=== PATIENT | female | born 2000 | race American Indian/Alaskan Native ===

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

== ENCOUNTER 2018-02-18 08:49 | Emergency (ER) | payer BC, MEDICAID ==
[2018-02-18 09:14] VITALS: BP 116/73
[2018-02-18] MEDS ORDERED: NACL 0.9% 1000 ML 1,000 ML IV ONE (09:51)
[2018-02-18 10:08] LABS: Hematocrit 40.6 % (30.3-42.9); Hemoglobin 13.7 gm/dl (10.1-14.3); Mean Corpuscular HGB Conc 34 % (30-34); Mean Corpuscular Volume 92 fl (79-97); Red Blood Count 4.42 M/mm3 (3.65-5.03); Red Cell Distribution Width 13.4 % (13.2-15.2)
[2018-02-18 10:09] LABS: Basophils % (Auto) 0.5 % (0.0-1.8); Eosinophils % (Auto) 0.4 % (0.0-4.3); Lymphocytes # (Auto) 2.1 K/mm3 (1.2-5.4); Lymphocytes % (Auto) 27.5 % (13.4-35.0); Monocytes # (Auto) 0.6 K/mm3 (0.0-0.8); Monocytes % (Auto) 7.3 % (0.0-7.3); Platelet Count 279 K/mm3 (140-440)
[2018-02-18 10:27] LABS: BUN/Creatinine Ratio 10; Blood Urea Nitrogen 6 mg/dL (7-17); Calcium 9.4 mg/dL (8.4-10.2); Hemolysis Index 15
[2018-02-18 10:29] LABS: Bacteria,Urine 4+ /HPF (Negative); Bilirubin,Urine NEG (Negative); Blood,Urine NEG (Negative); Color,Urine Yellow (Yellow); Mucus,Urine FEW /HPF; Protein,Urine <15 mg/dL mg/dL (Negative); Urobilinogen,Urine < 2.0 mg/dL (<2.0)
[2018-02-18 10:30] LABS: HCG Qualitative,Urine Negative (Negative)
--- NOTE | 2018-02-18 10:44 | Emergency Department Report ---
ED Syncope HPI - General Chief Complaint: Dizziness Stated Complaint: DIZINESS Time Seen by Provider: 02/18/18 09:35 - History of Present Illness Initial Comments: 17-year-old female presents to the ED following a syncopal episode while on the elevator. She states as the elevator began to move she passed out. She states this has happened before in the past, her passing out while riding an elevator. Patient denies headache, chest pain, shortness of breath, fever, vomiting, diarrhea. Patient reports history of tachycardia for which she takes nadolol and is seen by a oral health therapist, Dr Ratliff. Timing/Prior Episodes: remote history Precipitating Factors: Positive: none Context: standing Loss of Consciousness: brief (seconds) Current Symptoms: back to normal - Related Data Allergies/Adverse Reactions: Allergies corn Allergy (Verified 02/05/18 11:51) Rash peanut Allergy (Verified 09/03/17 02:59) Swelling Penicillins Allergy (Verified 09/03/17 02:59) Swelling shellfish derived Allergy (Verified 02/05/18 11:54) Swelling soybean Allergy (Verified 02/05/18 11:51) Rash wheat Allergy (Verified 02/05/18 11:51) Rash seafood Allergy (Uncoded 09/03/17 02:59) Swelling Home Medications: Ambulatory Orders Albuterol Sulfate Nebu 1 neb IH Q4-6H PRN 05/16/14 Flexeril 5mg 5 mg PO Q8H PRN 05/16/14 Gabapentin 600 mg PO BID 05/16/14 Ibuprofen [Motrin 400 MG tab] 400 mg PO Q8H PRN #30 tablet 04/25/15 predniSONE [Deltasone] 50 mg PO QDAY #5 tab 06/03/16 ALPRAZolam [Xanax TAB] 0.5 mg PO BID PRN #10 tab 02/06/17 Mag Hydrox/Aluminum Hyd/Simeth [Maalox Advanced Suspension] 20 ml PO QID PRN #1 oral.susp 09/03/17 Propranolol HCl 20 mg PO BID #60 tablet 09/03/17 hydrOXYzine PAMOATE [Vistaril] 50 mg PO Q6HR PRN #30 capsule 09/03/17 Famotidine [Pepcid] 20 mg PO BID #60 tablet 09/18/17 Azithromycin [Zithromax Z-CHARLENE] 250 mg PO DAILY #6 tablet 01/01/18 Benzonatate [Tessalon Perle] 100 mg PO Q8H PRN #20 capsule 01/01/18 Prednisone [predniSONE 10 mg (6-Day Pack, 21 Tabs)] 10 mg PO .TAPER #1 tab.ds.pk 01/01/18 Azithromycin [Zithromax Z-CHARLENE] 250 mg PO DAILY #6 tablet 02/05/18 Fluticasone [Flonase] 1 spray NS QDAY #1 bottle 02/05/18 predniSONE [Deltasone] 20 mg PO QDAY #5 tab 02/05/18 traMADol [Ultram] 50 mg PO Q6HR PRN #10 tablet 02/05/18 Benzonatate [Tessalon Perle] 100 mg PO Q8H PRN #20 capsule 02/11/18 ProAir 2 puff IH Q4-6H PRN #1 02/11/18 ED Review of Systems ROS: Stated complaint: DIZINESS Other details as noted in HPI Comment: All other systems reviewed and negative Constitutional: denies: chills, fever Respiratory: denies: shortness of breath Cardiovascular: denies: chest pain Gastrointestinal: denies: abdominal pain, nausea, vomiting, diarrhea Neurological: other (denies dizziness). denies: headache, weakness, numbness, paresthesias ED Past Medical Hx - Past Medical History Previous Medical History?: Yes Hx Arthritis: Yes Hx Asthma: Yes Additional medical history: chronic pain,palpitations. SCIATICA. "SPOT ON BRAIN", ANXIETY - Surgical History Past Surgical History?: Yes Additional Surgical History: TONSILLECTOMY. TUBES IN EARS - Social History Smoking Status: Never Smoker Substance Use Type: Prescribed - Medications Home Medications: Home Medications Medication Instructions Recorded Confirmed Last Taken Type Albuterol Sulfate Nebu 1 neb IH Q4-6H PRN 05/16/14 06/03/16 05/13/14 08:00 History Flexeril 5mg 5 mg PO Q8H PRN 05/16/14 06/03/16 05/14/14 21:00 History Gabapentin 600 mg PO BID 05/16/14 06/03/16 05/15/14 08:00 History Ibuprofen [Motrin 400 MG tab] 400 mg PO Q8H PRN #30 tablet 04/25/15 06/03/16 Unknown Rx predniSONE [Deltasone] 50 mg PO QDAY #5 tab 06/03/16 Unknown Rx ALPRAZolam [Xanax TAB] 0.5 mg PO BID PRN #10 tab 02/06/17 Unknown Rx Mag Hydrox/Aluminum Hyd/Simeth 20 ml PO QID PRN #1 oral.susp 09/03/17 Unknown Rx [Maalox Advanced Suspension] Propranolol HCl 20 mg PO BID #60 tablet 09/03/17 Unknown Rx hydrOXYzine PAMOATE [Vistaril] 50 mg PO Q6HR PRN #30 capsule 09/03/17 Unknown Rx Famotidine [Pepcid] 20 mg PO BID #60 tablet 09/18/17 Unknown Rx Azithromycin [Zithromax Z-CHARLENE] 250 mg PO DAILY #6 tablet 01/01/18 Unknown Rx Benzonatate [Tessalon Perle] 100 mg PO Q8H PRN #20 capsule 01/01/18 Unknown Rx Prednisone [predniSONE 10 mg 10 mg PO .TAPER #1 tab.ds.pk 01/01/18 Unknown Rx (6-Day Pack, 21 Tabs)] Azithromycin [Zithromax Z-CHARLENE] 250 mg PO DAILY #6 tablet 02/05/18 Unknown Rx Fluticasone [Flonase] 1 spray NS QDAY #1 bottle 02/05/18 Unknown Rx predniSONE [Deltasone] 20 mg PO QDAY #5 tab 02/05/18 Unknown Rx traMADol [Ultram] 50 mg PO Q6HR PRN #10 tablet 02/05/18 Unknown Rx Benzonatate [Tessalon Perle] 100 mg PO Q8H PRN #20 capsule 02/11/18 Unknown Rx ProAir 2 puff IH Q4-6H PRN #1 02/11/18 Unknown Rx ED Physical Exam - General Limitations: No Limitations General appearance: alert, in no apparent distress - Head Head exam: Present: atraumatic, normocephalic - Eye Eye exam: Present: normal appearance, PERRL, EOMI - ENT ENT exam: Present: mucous membranes moist - Neck Neck exam: Present: normal inspection - Respiratory Respiratory exam: Present: normal lung sounds bilaterally. Absent: respiratory distress - Cardiovascular Cardiovascular Exam: Present: regular rate, normal rhythm - GI/Abdominal GI/Abdominal exam: Present: soft. Absent: distended, tenderness - Extremities Exam Extremities exam: Present: normal inspection - Neurological Exam Neurological exam: Present: alert, oriented X3, CN II-XII intact. Absent: motor sensory deficit - Psychiatric Psychiatric exam: Present: normal affect, normal mood - Skin Skin exam: Present: warm, dry, intact, normal color ED Course Vital Signs 02/18/18 09:09 Temperature 98.4 F Pulse Rate 81 Respiratory 18 Rate Blood Pressure 116/73 O2 Sat by Pulse 100 Oximetry ED Medical Decision Making - Lab Data Result diagrams: 02/18/18 10:00 02/18/18 09:57 - EKG Data -: EKG Interpreted by Co EKG shows normal: sinus rhythm, axis, intervals, QRS complexes, ST-T waves Rate: normal - EKG Data Interpretation: no acute changes - Medical Decision Making 17-year-old female status post syncopal episode while elevated. She states this has happened before in the past and the elevated takeoff. Patient denies chest pain, shortness of breath, dizziness. Patient slightly orthostatic, so IV fluids given. EKG normal. Labs normal. Patient feeling much better at this time. Will discharge home. Advise follow-up with her oral health therapist. Return precautions given. - Differential Diagnosis vasovagal syncope, dehydration, arrythmia Critical care attestation.: If time is entered above; I have spent that time in minutes in the direct care of this critically ill patient, excluding procedure time. ED Disposition Clinical Impression: Syncope Disposition: DC-01 TO HOME OR SELFCARE Is pt being admited?: No Condition: Stable Instructions: Syncope (ED) Referrals: PRIMARY CARE, [Primary Care Provider] - 3-5 Days Time of Disposition: 11:57
== END 2018-02-18 12:08 | disposition home or self-care (01) ==
LOC: ED 08:49
DX: R55 Syncope and collapse (principal); M19.90 Unspecified osteoarthritis, unspecified site; J45.909 Unspecified asthma, uncomplicated
CPT/HCPCS: 36415; 80048; 81001; 81025; 85025; 93005; 93010; 96360; 99283; J7030

== ENCOUNTER 2019-04-02 17:48 | Emergency (ER) | payer BC, MEDICARE ==
[2019-04-02 19:32] VITALS: BP 121/79
--- NOTE | 2019-04-02 19:33 | Emergency Department Report ---
{null, Blank Doc - Documentation Documentation: 18-year-old female that presents with vaginal bleeding and pelvic cramping. U nsure if shes . This initial assessment/diagnostic orders/clinical plan/treatment(s) is/are subject to change based on patient's health status, clinical progression and re- assessment by fellow clinical providers in the ED. Further treatment and workup at subsequent clinical providers discretion. Patient/guardians urged not to elope from the ED as their condition may be serious if not clinically assessed and managed. Initial orders include: 1- Patient sent to [facility] for further evaluation and treatment 2- UA }
[2019-04-02 20:11] LABS: HCG Qualitative,Urine Negative (Negative)
[2019-04-02 20:12] LABS: Bacteria,Urine 1+ /HPF (Negative); Mucus,Urine FEW /HPF
[2019-04-02 20:15] LABS: RBC,Urine > 182.0 /HPF (0.0-6.0)
[2019-04-02 20:16] LABS: Bilirubin,Urine Negative (Negative); Blood,Urine Moderate (Negative); Color,Urine Straw (Yellow)
--- NOTE | 2019-04-02 22:36 | Emergency Department Report ---
{null, HPI - General Chief Complaint: Vaginal Bleeding Time Seen by Provider: 04/02/19 19:32 - HPI HPI: Room 39 The patient is a 18-year-old female presenting with a chief complaint of "possible miscarriage." The patient states her LMP was 03/11/2019. Patient states she had intercourse shortly afterwards and was concerned she was because she began developing nausea and vomiting in the mornings. Patient states this morning when she awakened she had back pain and lower abdominal cramping so she went to urinate and she noticed she passed a blood clot vaginally. The patient and family states the blood clot appeared to have "things" coming out of it that were attached to the patient which made him believe she was having a miscarriage. Patient currently denies vaginal bleeding ED Past Medical Hx - Past Medical History Previous Medical History?: Yes Hx Arthritis: Yes Hx Asthma: Yes Additional medical history: chronic pain,palpitations. SCIATICA. "SPOT ON BRAIN", ANXIETY - Surgical History Past Surgical History?: Yes Additional Surgical History: TONSILLECTOMY. TUBES IN EARS - Family History Family history: no significant - Social History Smoking Status: Never Smoker Substance Use Type: None - Medications Home Medications: Home Medications Medication Instructions Recorded Confirmed Last Taken Type Albuterol Sulfate Nebu 1 neb IH Q4-6H PRN 05/16/14 06/03/16 05/13/14 08:00 History Flexeril 5mg 5 mg PO Q8H PRN 05/16/14 06/03/16 05/14/14 21:00 History Gabapentin 600 mg PO BID 05/16/14 06/03/16 05/15/14 08:00 History Ibuprofen [Motrin 400 MG tab] 400 mg PO Q8H PRN #30 tablet 04/25/15 06/03/16 Unknown Rx predniSONE [Deltasone] 50 mg PO QDAY #5 tab 06/03/16 Unknown Rx ALPRAZolam [Xanax TAB] 0.5 mg PO BID PRN #10 tab 02/06/17 Unknown Rx Mag Hydrox/Aluminum Hyd/Simeth 20 ml PO QID PRN #1 oral.susp 09/03/17 Unknown Rx [Maalox Advanced Suspension] Propranolol HCl 20 mg PO BID #60 tablet 09/03/17 Unknown Rx hydrOXYzine PAMOATE [Vistaril] 50 mg PO Q6HR PRN #30 capsule 09/03/17 Unknown Rx Famotidine [Pepcid] 20 mg PO BID #60 tablet 09/18/17 Unknown Rx Azithromycin [Zithromax Z-CHARLENE] 250 mg PO DAILY #6 tablet 01/01/18 Unknown Rx Benzonatate [Tessalon Perle] 100 mg PO Q8H PRN #20 capsule 01/01/18 Unknown Rx Prednisone [predniSONE 10 mg 10 mg PO .TAPER #1 tab.ds.pk 01/01/18 Unknown Rx (6-Day Pack, 21 Tabs)] Azithromycin [Zithromax Z-CHARLENE] 250 mg PO DAILY #6 tablet 02/05/18 Unknown Rx Fluticasone [Flonase] 1 spray NS QDAY #1 bottle 02/05/18 Unknown Rx predniSONE [Deltasone] 20 mg PO QDAY #5 tab 02/05/18 Unknown Rx traMADoL [Ultram] 50 mg PO Q6HR PRN #10 tablet 02/05/18 Unknown Rx Benzonatate [Tessalon Perle] 100 mg PO Q8H PRN #20 capsule 02/11/18 Unknown Rx ProAir 2 puff IH Q4-6H PRN #1 02/11/18 Unknown Rx ED Review of Systems ROS: Stated complaint: POSS MISCARRIAGE Other details as noted in HPI Constitutional: no symptoms reported Eyes: denies: eye pain ENT: denies: throat pain Respiratory: no symptoms reported Cardiovascular: denies: chest pain Endocrine: no symptoms reported Gastrointestinal: abdominal pain Genitourinary: abnormal menses Musculoskeletal: denies: back pain Neurological: denies: headache Physical Exam - Physical Exam Vital Signs: Vital Signs 04/02/19 19:31 Temperature 98.0 F Pulse Rate 82 Respiratory 18 Rate Blood Pressure 121/79 O2 Sat by Pulse 100 Oximetry Physical Exam: GENERAL: The patient is well-developed well-nourished female lying on stretcher not appearing to be in acute distress. [] HEENT: Normocephalic. Atraumatic. Extraocular motions are intact. Patient has moist mucous membranes. NECK: Supple. Trachea midline CHEST/LUNGS: Clear to auscultation. There is no respiratory distress noted. HEART/CARDIOVASCULAR: Regular. There is no tachycardia. There is no gallop rub or murmur. ABDOMEN: Abdomen is soft, nontender. Patient has normal bowel sounds. There is no abdominal distention. SKIN: There is no rash. There is no edema. There is no diaphoresis. NEURO: The patient is awake, alert, and oriented. The patient is cooperative. The patient has normal speech MUSCULOSKELETAL: There is no evidence of acute injury. PELVIC: Patient requested female practitioner. Per EMERITA Lauren scant amount of blood in the vault. No tissue visualized. Nothing coming from the cervical os ED Course Vital Signs 04/02/19 19:31 Temperature 98.0 F Pulse Rate 82 Respiratory 18 Rate Blood Pressure 121/79 O2 Sat by Pulse 100 Oximetry ED Medical Decision Making - Differential Diagnosis Missed , metrorrhagia Critical care attestation.: If time is entered above; I have spent that time in minutes in the direct care of this critically ill patient, excluding procedure time. ED Disposition Clinical Impression: Metrorrhagia Disposition: DC-01 TO HOME OR SELFCARE Is pt being admited?: No Does the pt Need Aspirin: No Condition: Stable Additional Instructions: Return to the emergency department should you develop worsening symptoms, inability to tolerate food or liquids, high fever or any other concerns Referrals: ABIGAIL MILLER MD [Staff Physician] - 3-5 Days (Dr. Miller is a military communications specialist. Please follow-up with her for further evaluation) Time of Disposition: 00:13 }
== END 2019-04-03 00:20 | disposition home or self-care (01) ==
LOC: ED 17:48
DX: N92.1 Excessive and frequent menstruation with irregular cycle (principal); J45.909 Unspecified asthma, uncomplicated; M19.90 Unspecified osteoarthritis, unspecified site; Z98.890 Other specified postprocedural states; Z90.89 Acquired absence of other organs; Z88.0 Allergy status to penicillin; Z91.010 Allergy to peanuts; Z91.013 Allergy to seafood; Z91.018 Allergy to other foods; Z79.1 Long term (current) use of non-steroidal anti-inflammatories (NSAID); Z79.899 Other long term (current) drug therapy
CPT/HCPCS: 81001; 81025

== ENCOUNTER 2019-04-13 02:10 | Emergency (ER) | payer BC, MEDICARE ==
[2019-04-13 02:35] VITALS: BP 121/74
--- NOTE | 2019-04-13 02:52 | Emergency Department Report ---
Chief Complaint: Upper Respiratory Infection Stated Complaint: COUGHING SNEEZING RUNNY NOSE Time Seen by Provider: 04/13/19 02:31 - HPI History of Present Illness: This is a 18-year-old -[place] female who presents to the emergency room with facial pressure and congestion for 2 days. Patient states she took 1 dose of Tylenol and yesterday and started feeling better. Patient states her mom is being admitted for asthma so she decided to check and make sure she was okay. She denies cough, fever, chills, nausea, vomiting, abdominal pain, sore throat, chest pain, palpitations, and myalgia. - ROS Review of Systems: ROS: Stated complaint: Congestion and sinus pressure Other details as noted in HPI Constitutional: denies: chills, fever ENT: congestion and facial pressure denies: ear pain, throat pain Respiratory: denies: shortness of breath, cough, wheezing. Cardiovascular: denies: chest pain, palpitations Gastrointestinal: denies: abdominal pain, nausea, diarrhea Musculoskeletal: denies: back pain, joint swelling, arthralgia Skin: denies: rash, lesions Neurological: denies: headache, weakness, paresthesias Psychiatric: denies: anxiety, depression - Exam Vital Signs: Vital Signs 04/13/19 02:15 Temperature 98.1 F Pulse Rate 72 Respiratory 18 Rate Blood Pressure 121/74 O2 Sat by Pulse 99 Oximetry Physical Exam: General: Vital signs noted. No distress. Alert and acting appropriately. HEENT: Yes Moist Mucous Membranes, Yes Rhinorrhea (Turbinates congested with clear discharge), No Pharyngeal Erythema, No Pharyngeal Exudates, No Conjuctival Injection, No Frontal Tenderness, Yes Maxillary Tenderness Ear: Neither TM Bulge, Neither TM Erythema, Neither EAC Pain, Neither EAC Discharge Neck: Yes Supple, No Adenopathy Lungs: Yes Good Air Exchange, No Wheezes, No Ronchi, No Stridor, No Cough, No Labored Respirations, No Retractions, No Use of Accessory Muscles, No Other Abnormal Lung Sounds Heart: Yes Regular, No Murmur Abdomen: Yes Normal Bowel Sounds, No Tenderness, No Peritoneal Signs Skin: No Rash, No Edema Neurologic: Alert and oriented, no deficits. MSE screening note: Focused history and physical exam performed. Due to findings the following was ordered: ED Medical Decision Making - Medical Decision Making This is a 18-year-old female that presents to the emergency room with cough and congestion for 2 days. Vitals are stable and patient in no acute distress. This is a healthy patient with an uncomplicated sinus infection. Mild congestion and maxillary sinus tenderness to percussion on exam. Imaging and labs are deferred at this time. This is a non-emergent complaint. Findings are susceptible of acute sinusitis. Patient given instructions to take [id number] NSAIDs and nasal decongestants to relieve symptoms. Follow-up with primary care doctor in 3 days if symptoms worsen. Discharged home with strict return precautions. ED Disposition for MSE Disposition: MED SCREENING EXAM-LEFT Is pt being admited?: No Condition: Stable Instructions: Cold Symptoms (ED), Upper Respiratory Infection (ED) Additional Instructions: Increase fluid intake and rest. Wash hands frequently. Start taking [id number]-rus-[id number] nasal saline or Flonase and Tylenol or ibuprofen. F/U with Primary Care Provider. Return to ER if fever, SOB, or difficulty breathing after 48 hours of supportive care. Referrals: [facility] [Provider Group] - 3-5 Days NATE CUMMINGS DO [Staff Physician] - 3-5 Days [facility] [Provider Group] - 3-5 Days Forms: Work/School Release Form(ED) Time of Disposition: 02:46
== END 2019-04-13 02:55 | disposition left against medical advice (07) ==
LOC: ED 02:10
DX: R05 Cough (principal); R09.81 Nasal congestion; J45.909 Unspecified asthma, uncomplicated
CPT/HCPCS: 99281

== ENCOUNTER 2019-10-17 20:49 | Emergency (ER) | payer BC, MEDICAID ==
[2019-10-17 21:32] VITALS: BP 127/88
== END 2019-10-17 23:55 | disposition left against medical advice (07) ==
LOC: ED 20:49
DX: K59.00 Constipation, unspecified (principal); Z53.21 Procedure and treatment not carried out due to patient leaving prior to being seen by health care provider

== ENCOUNTER 2019-11-24 12:12 | Emergency (ER) | payer BC, MEDICAID ==
[2019-11-24 12:44] VITALS: BP 123/85
--- NOTE | 2019-11-24 16:15 | Emergency Department Report ---
ED N/V/D HPI - General Chief complaint: Urogenital-Female Stated complaint: NAUSEA Time Seen by Provider: 11/24/19 16:04 Source: patient Mode of arrival: Ambulatory Limitations: No Limitations - History of Present Illness Initial comments: The patient was evaluated in the emergency department for symptoms described in the history of present illness. He/she was evaluated in the context of the global COVID-19 pandemic, which necessitated consideration that the patient might be at risk for infection with the virus that causes COVID-19. Institutional protocols and algorithms that pertain to the evaluation of patients at risk for COVID-19 are in a state of rapid change based on information released by regulatory bodies including the CDC and federal and state organizations. These policies and algorithms were followed during the patient's care in the emergency department. Please note that these policies, procedures and recommendations changed on a rapid basis. 19-year-old -[place] female presents to the emergency room for nausea and wanting STD check. Patient states that her boyfriend has stepped out on her. Patient denies any vaginal discharge no vaginal bleeding. She reports last time she vomited was yesterday no vomiting today. Patient reports her last menstrual period was 11/11/2019. She reports she is currently has no primary care provider or OB provider. Patient denies any fever chills no abdominal pain no pelvic pain no chest pain no palpitations no change in vision no headache. MD complaint: nausea Onset/Timin -: days(s) Associated Abdominal Pain: No Associated Symptoms: nausea/vomiting - Related Data Home Medications Medication Instructions Recorded Confirmed Last Taken Albuterol Sulfate Nebu 1 neb IH Q4-6H PRN 05/16/14 06/03/16 05/13/14 08:00 Flexeril 5mg 5 mg PO Q8H PRN 05/16/14 06/03/16 05/14/14 21:00 Gabapentin 600 mg PO BID 05/16/14 06/03/16 05/15/14 08:00 Previous Rx's Medication Instructions Recorded Last Taken Type Ibuprofen [Motrin 400 MG tab] 400 mg PO Q8H PRN #30 tablet 04/25/15 Unknown Rx predniSONE [Deltasone] 50 mg PO QDAY #5 tab 06/03/16 Unknown Rx ALPRAZolam [Xanax TAB] 0.5 mg PO BID PRN #10 tab 02/06/17 Unknown Rx Mag Hydrox/Aluminum Hyd/Simeth 20 ml PO QID PRN #1 oral.susp 09/03/17 Unknown Rx [Maalox Advanced Suspension] Propranolol HCl 20 mg PO BID #60 tablet 09/03/17 Unknown Rx hydrOXYzine PAMOATE [Vistaril] 50 mg PO Q6HR PRN #30 capsule 09/03/17 Unknown Rx Famotidine [Pepcid] 20 mg PO BID #60 tablet 09/18/17 Unknown Rx Azithromycin [Zithromax Z-CHARLENE] 250 mg PO DAILY #6 tablet 01/01/18 Unknown Rx Benzonatate [Tessalon Perle] 100 mg PO Q8H PRN #20 capsule 01/01/18 Unknown Rx Prednisone [predniSONE 10 mg 10 mg PO .TAPER #1 tab.ds.pk 01/01/18 Unknown Rx (6-Day Pack, 21 Tabs)] Azithromycin [Zithromax Z-CHARLENE] 250 mg PO DAILY #6 tablet 02/05/18 Unknown Rx Fluticasone [Flonase] 1 spray NS QDAY #1 bottle 02/05/18 Unknown Rx predniSONE [Deltasone] 20 mg PO QDAY #5 tab 02/05/18 Unknown Rx traMADoL [Ultram] 50 mg PO Q6HR PRN #10 tablet 02/05/18 Unknown Rx Benzonatate [Tessalon Perle] 100 mg PO Q8H PRN #20 capsule 02/11/18 Unknown Rx ProAir 2 puff IH Q4-6H PRN #1 02/11/18 Unknown Rx Ibuprofen [Motrin] 600 mg PO Q8H PRN #30 tablet 07/25/19 Unknown Rx Cyclobenzaprine [Flexeril] 10 mg PO QHS PRN #21 tablet 08/24/19 Unknown Rx Naproxen 500 mg PO Q12H PRN #24 tablet 08/24/19 Unknown Rx diphenhydrAMINE HCL [Sominex] 25 mg PO Q8H PRN #24 tablet 11/24/19 Unknown Rx Allergies Allergy/AdvReac Type Severity Reaction Status Date / Time corn Allergy Rash Verified 07/25/19 17:44 peanut Allergy Swelling Verified 07/25/19 17:44 Penicillins Allergy Swelling Verified 07/25/19 17:44 shellfish derived Allergy Swelling Verified 07/25/19 17:44 soybean Allergy Rash Verified 07/25/19 17:44 wheat Allergy Rash Verified 07/25/19 17:44 seafood Allergy Swelling Uncoded 07/25/19 17:44 ED Review of Systems ROS: Stated complaint: NAUSEA Other details as noted in HPI Comment: All other systems reviewed and negative ED Past Medical Hx - Past Medical History Previous Medical History?: Yes Hx GERD: Yes Hx Arthritis: Yes Hx Asthma: Yes Additional medical history: chronic pain,palpitations. SCIATICA. "SPOT ON BRAIN", ANXIETY - Surgical History Past Surgical History?: Yes Additional Surgical History: TONSILLECTOMY. TUBES IN EARS - Social History Smoking Status: Never Smoker Substance Use Type: None - Medications Home Medications: Home Medications Medication Instructions Recorded Confirmed Last Taken Type Albuterol Sulfate Nebu 1 neb IH Q4-6H PRN 05/16/14 06/03/16 05/13/14 08:00 History Flexeril 5mg 5 mg PO Q8H PRN 05/16/14 06/03/16 05/14/14 21:00 History Gabapentin 600 mg PO BID 05/16/14 06/03/16 05/15/14 08:00 History Ibuprofen [Motrin 400 MG tab] 400 mg PO Q8H PRN #30 tablet 04/25/15 06/03/16 Unknown Rx predniSONE [Deltasone] 50 mg PO QDAY #5 tab 06/03/16 Unknown Rx ALPRAZolam [Xanax TAB] 0.5 mg PO BID PRN #10 tab 02/06/17 Unknown Rx Mag Hydrox/Aluminum Hyd/Simeth 20 ml PO QID PRN #1 oral.susp 09/03/17 Unknown Rx [Maalox Advanced Suspension] Propranolol HCl 20 mg PO BID #60 tablet 09/03/17 Unknown Rx hydrOXYzine PAMOATE [Vistaril] 50 mg PO Q6HR PRN #30 capsule 09/03/17 Unknown Rx Famotidine [Pepcid] 20 mg PO BID #60 tablet 09/18/17 Unknown Rx Azithromycin [Zithromax Z-CHARLENE] 250 mg PO DAILY #6 tablet 01/01/18 Unknown Rx Benzonatate [Tessalon Perle] 100 mg PO Q8H PRN #20 capsule 01/01/18 Unknown Rx Prednisone [predniSONE 10 mg 10 mg PO .TAPER #1 tab.ds.pk 01/01/18 Unknown Rx (6-Day Pack, 21 Tabs)] Azithromycin [Zithromax Z-CHARLENE] 250 mg PO DAILY #6 tablet 02/05/18 Unknown Rx Fluticasone [Flonase] 1 spray NS QDAY #1 bottle 02/05/18 Unknown Rx predniSONE [Deltasone] 20 mg PO QDAY #5 tab 02/05/18 Unknown Rx traMADoL [Ultram] 50 mg PO Q6HR PRN #10 tablet 02/05/18 Unknown Rx Benzonatate [Tessalon Perle] 100 mg PO Q8H PRN #20 capsule 02/11/18 Unknown Rx ProAir 2 puff IH Q4-6H PRN #1 02/11/18 Unknown Rx Ibuprofen [Motrin] 600 mg PO Q8H PRN #30 tablet 07/25/19 Unknown Rx Cyclobenzaprine [Flexeril] 10 mg PO QHS PRN #21 tablet 08/24/19 Unknown Rx Naproxen 500 mg PO Q12H PRN #24 tablet 08/24/19 Unknown Rx diphenhydrAMINE HCL [Sominex] 25 mg PO Q8H PRN #24 tablet 11/24/19 Unknown Rx ED Physical Exam - General Limitations: No Limitations General appearance: alert, in no apparent distress - Head Head exam: Present: atraumatic, normocephalic - Eye Eye exam: Present: normal appearance, PERRL - ENT ENT exam: Present: normal exam, mucous membranes moist - Neck Neck exam: Present: normal inspection, full ROM - Back Exam Back exam: Present: full ROM - Neurological Exam Neurological exam: Present: alert, oriented X3, normal gait - Psychiatric Psychiatric exam: Present: normal affect, normal mood - Skin Skin exam: Present: warm, dry, intact, normal color. Absent: rash ED Course Vital Signs 11/24/19 12:42 Temperature 98.1 F Pulse Rate 70 Respiratory 14 Rate Blood Pressure 123/85 O2 Sat by Pulse 98 Oximetry ED Medical Decision Making - Medical Decision Making 19-year-old -[place] female presents to the emergency room for nausea and wanting STD check. Patient states that her boyfriend has stepped out on her. Patient denies any vaginal discharge no vaginal bleeding. She reports last time she vomited was yesterday no vomiting today. Patient reports her last menstrual period was 11/11/2019. She reports she is currently has no primary care provider or OB provider. Patient denies any fever chills no abdominal pain no pelvic pain no chest pain no palpitations no change in vision no headache. Patient has stable vital signs complains of no pain only intermittent nausea and no vomiting the last 24 hours able to handle a p.o. challenge during the ER visit. Patient is stable to be discharged home with a prescription for Benadryl as needed. Patient is referred to [facility] for full STD screening and exam. Critical care attestation.: If time is entered above; I have spent that time in minutes in the direct care of this critically ill patient, excluding procedure time. ED Disposition Clinical Impression: Nausea alone Disposition: - TO HOME OR SELFCARE Is pt being admited?: No Does the pt Need Aspirin: No Condition: Stable Instructions: Acute Nausea and Vomiting (ED) Additional Instructions: Please take medication as prescribed. Follow-up with a [facility] or primary care provider. Prescriptions: diphenhydrAMINE HCL [Sominex] 25 mg PO Q8H PRN #24 tablet PRN Reason: Nausea And Vomiting Referrals: [facility] [Primary Care Provider] - 3-5 Days [facility] [Provider Group] - 3-5 Days [facility] [Provider Group] - 3-5 Days Forms: Work/School Release Form(ED)
== END 2019-11-24 16:26 | disposition home or self-care (01) ==
LOC: ED 12:12
DX: R11.0 Nausea (principal); K21.9 Gastro-esophageal reflux disease without esophagitis; M19.91 Primary osteoarthritis, unspecified site; J45.909 Unspecified asthma, uncomplicated; Z90.89 Acquired absence of other organs; Z98.890 Other specified postprocedural states; Z79.1 Long term (current) use of non-steroidal anti-inflammatories (NSAID); Z79.2 Long term (current) use of antibiotics; Z79.899 Other long term (current) drug therapy; Z88.0 Allergy status to penicillin; Z91.010 Allergy to peanuts; Z91.013 Allergy to seafood; Z88.8 Allergy status to other drugs, medicaments and biological substances; Z91.018 Allergy to other foods
CPT/HCPCS: 99281

== ENCOUNTER 2020-02-15 17:12 | Emergency (ER) | payer BC, MEDICAID ==
[2020-02-15 17:17] VITALS: BP 118/75
--- NOTE | 2020-02-15 17:32 | Emergency Department Report ---
Chief Complaint: Upper Respiratory Infection Stated Complaint: COUGH/SNEEZING/RUNNING NOSE Time Seen by Provider: 02/15/20 17:25 - HPI History of Present Illness: Patient is a 19-year-old female presents emergency room with complaints of sneezing, rhinorrhea, nasal congestion that began 2 days ago. She states that she has associated mild headache and a mild occasional dry cough. She denies any fever, shortness of breath, abdominal pain, vomiting, diarrhea, chest pain. Her mother has similar symptoms. She denies any recent travel. She has a past medical history of sciatica, asthma, arthritis. Last menstrual cycle 01/31/2020. Vitals are normal On exam: Non toxic appearing, no acute distress atraumatic, normocephalic normal appearance of the eyes, PERRL, EOMI, no periorbital edema or ecchymosis moist mucus membranes, normal oropharynx, normal nasal turbinates, no sinus tenderness palpation bilaterally regular heart rate and rhythm, no gallops, no rubs, no murmurs breath sounds are clear bilaterally, no w/r/r, no stridor, no respiratory distress, no accessory muscle use A&O x4, no focal neuro deficit skin is warm, dry, intact Patient is presenting with symptoms most consistent with a viral URI Her vitals are normal Her breath sounds are clear bilaterally She has no clinical signs of bacterial pneumonia or bacterial bronchitis No clinical signs of bacterial sinusitis or dehydration Discussed supportive care and symptomatic treatment with patient Patient is presenting with the symptoms during COVID-19 pandemic and has had a sick contact, discussed COVID-19 with patient, discussed return precautions, discussed outpatient testing, discussed self quarantine Discussed very strict return precautions in detail with patient Medical screening examination performed and there is no threat to life or limb at this time - Exam Vital Signs: Vital Signs 02/15/20 17:15 Temperature 98.8 F Pulse Rate 92 H Respiratory 18 Rate Blood Pressure 118/75 [Right] O2 Sat by Pulse 98 Oximetry MSE screening note: Focused history and physical exam performed. ED Disposition for MSE Clinical Impression: Viral URI Disposition: MED SCREENING EXAM-LEFT Is pt being admited?: No Does the pt Need Aspirin: No Condition: Stable Instructions: Viral Respiratory Infection Additional Instructions: Please increase your fluid intake over the next several days. May take Tylenol as needed for fever or body aches. May take [id number] cold symptom relief medication such as Mucinex or TheraFlu. Follow-up with a primary care doctor for reexamination. Return to emergency room immediately for any new or worsening symptoms including but not limited to difficulty breathing, shortness of breath, severe chest pain, unable to tolerate by mouth intake, etc. Please self quarantine for 10 days from the onset of your symptoms. Please do not go out in public. If you are around others at home please wear a mask. If you need to cough or sneeze please do so in a napkin and immediately throw it away and immediately wash your hands. Wash your hands frequently. Wipe everything down. Recommend for you to get COVID-19 testing, may have this done at primary care doctor, health department, [facility] testing center. Referrals: ROHIT PATEL MD [Staff Physician] - 2-3 Days [facility] [Provider Group] - 2-3 Days Time of Disposition: 17:31 Print Language: EMIRATI
== END 2020-02-15 18:03 | disposition left against medical advice (07) ==
LOC: ED 17:12
DX: J06.9 Acute upper respiratory infection, unspecified (principal); B97.89 Other viral agents as the cause of diseases classified elsewhere; Z53.21 Procedure and treatment not carried out due to patient leaving prior to being seen by health care provider

== ENCOUNTER 2020-02-28 03:51 | Emergency (ER) | payer BC, MEDICAID ==
[2020-02-28] MEDS ORDERED: ONDANSETRON 4 MG ODT TAB PO ONE (04:23)
[2020-02-28 05:05] LABS: Basophils # (Auto) 0.1 K/mm3 (0.0-0.1); Basophils % (Auto) 0.6 % (0.0-1.8); Eosinophils # (Auto) 0.1 K/mm3 (0.0-0.4); Eosinophils % (Auto) 0.5 % (0.0-4.3); Hematocrit 39.6 % (30.3-42.9); Hemoglobin 13.2 gm/dl (10.1-14.3); Lymphocytes # (Auto) 2.3 K/mm3 (1.2-5.4); Lymphocytes % (Auto) 21.7 % (13.4-35.0); Mean Corpuscular HGB Conc 33 % (30-34); Mean Corpuscular Volume 92 fl (79-97); Monocytes # (Auto) 0.6 K/mm3 (0.0-0.8); Monocytes % (Auto) 5.5 % (0.0-7.3); Platelet Count 305 K/mm3 (140-440); Red Blood Count 4.32 M/mm3 (3.65-5.03); Red Cell Distribution Width 13.1 % (13.2-15.2)
[2020-02-28 05:11] VITALS: BP 114/77
[2020-02-28 05:19] LABS: Bacteria,Urine 1+ /HPF (Negative); Bilirubin,Urine NEG (Negative); Blood,Urine NEG (Negative); Color,Urine Yellow (Yellow); Mucus,Urine FEW /HPF; Protein,Urine <15 mg/dL mg/dL (Negative)
[2020-02-28 05:21] LABS: HCG Qualitative,Urine Negative (Negative)
[2020-02-28 05:26] LABS: BUN/Creatinine Ratio 23; Blood Urea Nitrogen 18 mg/dL (7-17); Calcium 9.7 mg/dL (8.4-10.2); Hemolysis Index 7
--- NOTE | 2020-02-28 05:36 | Emergency Department Report ---
ED General Adult HPI - General Chief complaint: Dizziness Stated complaint: DIZZINESS/NAUSEA Source: patient Mode of arrival: Ambulatory Limitations: No Limitations - History of Present Illness Initial comments: Patient is a nulliparous 19-year-old -[place] female with a history of asthma, migraine headaches, chronic osteoarthritis, chronic low back pain who presents to the ED with complaint of acute onset persistent lightheadedness and intermittent nausea for the last 3 days. Patient states that the symptoms have been persistent and intermittent. Patient denies headache, dizziness, syncope, chest pain or shortness of breath, fever, chills, cough, vomiting, diarrhea, abdominal pain, dysuria, urinary frequency and urgency, sore throat, nasal and sinus congestion, vision changes or cough. MD Complaint: Lightheadedness, nausea -: Sudden, days(s) (3) Location: abdomen Radiation: non-radiation Severity scale (0 -10): 2 Quality: dull Consistency: intermittent Improves with: none Worsens with: none Associated Symptoms: denies other symptoms, nausea/vomiting. denies: confusion, chest pain, cough, diaphoresis, fever/chills, headaches, loss of appetite, malaise, rash, seizure, shortness of breath, syncope, weakness, other Treatments Prior to Arrival: none - Related Data Home Medications Medication Instructions Recorded Confirmed Last Taken Albuterol Sulfate Nebu 1 neb IH Q4-6H PRN 05/16/14 06/03/16 05/13/14 08:00 Flexeril 5mg 5 mg PO Q8H PRN 05/16/14 06/03/16 05/14/14 21:00 Gabapentin 600 mg PO BID 05/16/14 06/03/16 05/15/14 08:00 Previous Rx's Medication Instructions Recorded Last Taken Type Ibuprofen [Motrin 400 MG tab] 400 mg PO Q8H PRN #30 tablet 04/25/15 Unknown Rx predniSONE [Deltasone] 50 mg PO QDAY #5 tab 06/03/16 Unknown Rx ALPRAZolam [Xanax TAB] 0.5 mg PO BID PRN #10 tab 02/06/17 Unknown Rx Mag Hydrox/Aluminum Hyd/Simeth 20 ml PO QID PRN #1 oral.susp 09/03/17 Unknown Rx [Maalox Advanced Suspension] Propranolol HCl 20 mg PO BID #60 tablet 09/03/17 Unknown Rx hydrOXYzine PAMOATE [Vistaril] 50 mg PO Q6HR PRN #30 capsule 09/03/17 Unknown Rx Famotidine [Pepcid] 20 mg PO BID #60 tablet 09/18/17 Unknown Rx Azithromycin [Zithromax Z-CHARLENE] 250 mg PO DAILY #6 tablet 01/01/18 Unknown Rx Benzonatate [Tessalon Perle] 100 mg PO Q8H PRN #20 capsule 01/01/18 Unknown Rx Prednisone [predniSONE 10 mg 10 mg PO .TAPER #1 tab.ds.pk 01/01/18 Unknown Rx (6-Day Pack, 21 Tabs)] Azithromycin [Zithromax Z-CHARLENE] 250 mg PO DAILY #6 tablet 02/05/18 Unknown Rx Fluticasone [Flonase] 1 spray NS QDAY #1 bottle 02/05/18 Unknown Rx predniSONE [Deltasone] 20 mg PO QDAY #5 tab 02/05/18 Unknown Rx traMADoL [Ultram] 50 mg PO Q6HR PRN #10 tablet 02/05/18 Unknown Rx Benzonatate [Tessalon Perle] 100 mg PO Q8H PRN #20 capsule 02/11/18 Unknown Rx ProAir 2 puff IH Q4-6H PRN #1 02/11/18 Unknown Rx Ibuprofen [Motrin] 600 mg PO Q8H PRN #30 tablet 07/25/19 Unknown Rx Cyclobenzaprine [Flexeril] 10 mg PO QHS PRN #21 tablet 08/24/19 Unknown Rx Naproxen 500 mg PO Q12H PRN #24 tablet 08/24/19 Unknown Rx diphenhydrAMINE HCL [Sominex] 25 mg PO Q8H PRN #24 tablet 11/24/19 Unknown Rx Ondansetron [Zofran Odt] 4 mg PO Q6HR PRN #15 tab.rapdis 02/28/20 Unknown Rx Allergies Allergy/AdvReac Type Severity Reaction Status Date / Time corn Allergy Rash Verified 07/25/19 17:44 peanut Allergy Swelling Verified 07/25/19 17:44 Penicillins Allergy Swelling Verified 07/25/19 17:44 shellfish derived Allergy Swelling Verified 07/25/19 17:44 soybean Allergy Rash Verified 07/25/19 17:44 wheat Allergy Rash Verified 07/25/19 17:44 seafood Allergy Swelling Uncoded 07/25/19 17:44 ED Review of Systems ROS: Stated complaint: DIZZINESS/NAUSEA Other details as noted in HPI Constitutional: denies: chills, fever Eyes: denies: eye pain, eye discharge, vision change ENT: denies: ear pain, throat pain Respiratory: denies: cough, shortness of breath, wheezing Cardiovascular: denies: chest pain, palpitations Endocrine: no symptoms reported Gastrointestinal: nausea. denies: abdominal pain, diarrhea Genitourinary: denies: urgency, dysuria, discharge Musculoskeletal: denies: back pain, joint swelling, arthralgia Skin: denies: rash, lesions Neurological: other (Lightheadedness). denies: headache, weakness, paresthesias Psychiatric: denies: anxiety, depression Hematological/Lymphatic: denies: easy bleeding, easy bruising ED Past Medical Hx - Past Medical History Previous Medical History?: Yes Hx GERD: Yes Hx Arthritis: Yes Hx Asthma: Yes Additional medical history: chronic pain,palpitations. SCIATICA, Anemia. "SPOT ON BRAIN", ANXIETY - Surgical History Past Surgical History?: Yes Additional Surgical History: TONSILLECTOMY. TUBES IN EARS - Social History Smoking Status: Never Smoker Substance Use Type: None - Medications Home Medications: Home Medications Medication Instructions Recorded Confirmed Last Taken Type Albuterol Sulfate Nebu 1 neb IH Q4-6H PRN 05/16/14 06/03/16 05/13/14 08:00 History Flexeril 5mg 5 mg PO Q8H PRN 05/16/14 06/03/16 05/14/14 21:00 History Gabapentin 600 mg PO BID 05/16/14 06/03/16 05/15/14 08:00 History Ibuprofen [Motrin 400 MG tab] 400 mg PO Q8H PRN #30 tablet 04/25/15 06/03/16 Unknown Rx predniSONE [Deltasone] 50 mg PO QDAY #5 tab 06/03/16 Unknown Rx ALPRAZolam [Xanax TAB] 0.5 mg PO BID PRN #10 tab 02/06/17 Unknown Rx Mag Hydrox/Aluminum Hyd/Simeth 20 ml PO QID PRN #1 oral.susp 09/03/17 Unknown Rx [Maalox Advanced Suspension] Propranolol HCl 20 mg PO BID #60 tablet 09/03/17 Unknown Rx hydrOXYzine PAMOATE [Vistaril] 50 mg PO Q6HR PRN #30 capsule 09/03/17 Unknown Rx Famotidine [Pepcid] 20 mg PO BID #60 tablet 09/18/17 Unknown Rx Azithromycin [Zithromax Z-CHARLENE] 250 mg PO DAILY #6 tablet 01/01/18 Unknown Rx Benzonatate [Tessalon Perle] 100 mg PO Q8H PRN #20 capsule 01/01/18 Unknown Rx Prednisone [predniSONE 10 mg 10 mg PO .TAPER #1 tab.ds.pk 01/01/18 Unknown Rx (6-Day Pack, 21 Tabs)] Azithromycin [Zithromax Z-CHARLENE] 250 mg PO DAILY #6 tablet 02/05/18 Unknown Rx Fluticasone [Flonase] 1 spray NS QDAY #1 bottle 02/05/18 Unknown Rx predniSONE [Deltasone] 20 mg PO QDAY #5 tab 02/05/18 Unknown Rx traMADoL [Ultram] 50 mg PO Q6HR PRN #10 tablet 02/05/18 Unknown Rx Benzonatate [Tessalon Perle] 100 mg PO Q8H PRN #20 capsule 02/11/18 Unknown Rx ProAir 2 puff IH Q4-6H PRN #1 02/11/18 Unknown Rx Ibuprofen [Motrin] 600 mg PO Q8H PRN #30 tablet 07/25/19 Unknown Rx Cyclobenzaprine [Flexeril] 10 mg PO QHS PRN #21 tablet 08/24/19 Unknown Rx Naproxen 500 mg PO Q12H PRN #24 tablet 08/24/19 Unknown Rx diphenhydrAMINE HCL [Sominex] 25 mg PO Q8H PRN #24 tablet 11/24/19 Unknown Rx Ondansetron [Zofran Odt] 4 mg PO Q6HR PRN #15 tab.rapdis 02/28/20 Unknown Rx ED Physical Exam - General Limitations: No Limitations General appearance: alert, in no apparent distress - Head Head exam: Present: atraumatic, normocephalic, normal inspection - Eye Eye exam: Present: normal appearance, PERRL, EOMI Pupils: Present: normal accommodation - ENT ENT exam: Present: normal exam, normal orophraynx, mucous membranes moist, TM's normal bilaterally, normal external ear exam - Neck Neck exam: Present: normal inspection, full ROM - Respiratory Respiratory exam: Present: normal lung sounds bilaterally. Absent: respiratory distress, wheezes, rales, rhonchi, chest wall tenderness, accessory muscle use, decreased breath sounds - Cardiovascular Cardiovascular Exam: Present: regular rate, normal rhythm, normal heart sounds. Absent: systolic murmur, diastolic murmur, rubs, gallop - GI/Abdominal GI/Abdominal exam: Present: soft, normal bowel sounds. Absent: tenderness, guarding, rebound, hyperactive bowel sounds, hypoactive bowel sounds, organomegaly - Extremities Exam Extremities exam: Present: normal inspection, full ROM, normal capillary refill - Back Exam Back exam: Present: normal inspection, full ROM. Absent: tenderness, CVA tenderness (R), CVA tenderness (L), muscle spasm, paraspinal tenderness, vertebral tenderness - Neurological Exam Neurological exam: Present: alert, oriented X3, CN II-XII intact, normal gait, reflexes normal - Psychiatric Psychiatric exam: Present: normal affect, normal mood, anxious - Skin Skin exam: Present: warm, dry, intact, normal color. Absent: rash ED Course Vital Signs 02/28/20 04:12 Temperature 99.6 F Pulse Rate 86 Respiratory 16 Rate Blood Pressure 114/77 O2 Sat by Pulse 98 Oximetry ED Medical Decision Making - Lab Data Result diagrams: 02/28/20 04:28 02/28/20 04:28 - Medical Decision Making This is a nulliparous 19-year-old -[place] female with a history of asthma, migraine headaches, chronic osteoarthritis, chronic low back pain who presents to the ED with complaint of acute onset persistent lightheadedness and intermittent nausea for the last 3 days. Patient states that the symptoms have been persistent and intermittent. In the ED, patient is alert and oriented x3 and is not in distress with normal vital signs. Lab test results were reviewed and are all nonactionable. Patient was treated for nausea and in the ED. On reevaluation, patient felt better and was discharged home on medications. Patient was advised to follow-up with her primary care physician in 5 to 7 days for reevaluation or return to the ED immediately if symptoms get worse. - Differential Diagnosis Dehydration; viral syndrome; gastroenteritis; GERD; Critical care attestation.: If time is entered above; I have spent that time in minutes in the direct care of this critically ill patient, excluding procedure time. ED Disposition Clinical Impression: Intermittent lightheadedness, Nausea without vomiting Disposition: DC-01 TO HOME OR SELFCARE Is pt being admited?: No Does the pt Need Aspirin: No Condition: Stable Instructions: Nausea and Vomiting, Adult, [id number], Dizziness, [id number] Additional Instructions: All the test results were reviewed and are all nonactionable. Therefore take medications and drink plenty of fluids especially water, follow-up with your primary care physician in 5 to 7 days for reevaluation or return to the ED immediately if symptoms get worse. Prescriptions: Ondansetron [Zofran Odt] 4 mg PO Q6HR PRN #15 tab.rapdis PRN Reason: Nausea Referrals: [facility] [Provider Group] - 3-5 Days Time of Disposition: 05:37 Print Language: BELARUSIAN
== END 2020-02-28 05:45 | disposition home or self-care (01) ==
LOC: ED 03:51
DX: R42 Dizziness and giddiness (principal); R11.0 Nausea; K21.9 Gastro-esophageal reflux disease without esophagitis; M19.91 Primary osteoarthritis, unspecified site; J45.909 Unspecified asthma, uncomplicated; Z90.89 Acquired absence of other organs; Z98.890 Other specified postprocedural states; Z79.2 Long term (current) use of antibiotics; Z79.899 Other long term (current) drug therapy; Z88.8 Allergy status to other drugs, medicaments and biological substances
CPT/HCPCS: 36415; 80048; 81001; 81025; 85025; Q0162

== ENCOUNTER 2020-04-22 14:59 | Emergency (ER) | payer BC, MEDICAID ==
[2020-04-22 15:07] VITALS: BP 119/79
[2020-04-22 15:54] LABS: Basophils % (Auto) 0.2 % (0.0-1.8); Eosinophils # (Auto) 0.1 K/mm3 (0.0-0.4); Eosinophils % (Auto) 0.8 % (0.0-4.3); Hematocrit 39.2 % (30.3-42.9); Hemoglobin 13.4 gm/dl (10.1-14.3); Lymphocytes # (Auto) 1.7 K/mm3 (1.2-5.4); Lymphocytes % (Auto) 15.7 % (13.4-35.0); Mean Corpuscular HGB Conc 34 % (30-34); Mean Corpuscular Volume 92 fl (79-97); Monocytes # (Auto) 0.9 K/mm3 (0.0-0.8); Monocytes % (Auto) 8.5 % (0.0-7.3); Platelet Count 286 K/mm3 (140-440); Red Blood Count 4.26 M/mm3 (3.65-5.03); Red Cell Distribution Width 13.3 % (13.2-15.2)
[2020-04-22 16:10] LABS: Blood Urea Nitrogen 14 mg/dL (7-17); Calcium 9.1 mg/dL (8.4-10.2); Hemolysis Index 8
[2020-04-22 16:27] LABS: BUN/Creatinine Ratio 20
[2020-04-22 16:42] LABS: Bilirubin,Urine NEG (Negative); Blood,Urine LG (Negative); Color,Urine Red (Yellow); Mucus,Urine 2+ /HPF
[2020-04-22 16:45] LABS: RBC,Urine > 182.0 /HPF (0.0-6.0)
--- NOTE | 2020-04-22 17:46 | Emergency Department Report ---
ED HPI - General Chief complaint: Abdominal Pain Stated complaint: CRAMPS PERIOD Time Seen by Provider: 04/22/20 15:26 Source: patient Mode of arrival: Ambulatory Limitations: No Limitations - History of Present Illness Initial comments: This is a 19-year-old female nontoxic, well nourished in appearance, no acute signs of distress presents to the ED with c/o of vaginal bleeding and pelvic cramping x1 day. Patient stated that she just got her menstrual cycle yesterday. Patient denies any abdominal pain. Patient denies any vaginal discharge or foul odor. Patient denies any nausea, vomiting, chest pain, shortness of breathe, fever, chills, headache, stiff neck, numbness, tingling. Patient denies any urinary symptoms. MD Complaint: vaginal bleeding -: days(s) Location: pelvis Radiation: none Severity: mild Severity scale (0 -10): 3 Quality: cramping Consistency: intermittent Improves with: none Worsens with: none Associated symptoms: vaginal bleeding. denies: nausea/vomiting, vaginal discharge, abdominal pain, dysuria, headache, vision changes, malaise, dysparuenia, rash, seizure, shortness of breath, syncope, weakness Vaginal bleeding: light :: No - Related Data Home Medications Medication Instructions Recorded Confirmed Last Taken Albuterol Sulfate Nebu 1 neb IH Q4-6H PRN 05/16/14 06/03/16 05/13/14 08:00 Flexeril 5mg 5 mg PO Q8H PRN 05/16/14 06/03/16 05/14/14 21:00 Gabapentin 600 mg PO BID 05/16/14 06/03/16 05/15/14 08:00 Previous Rx's Medication Instructions Recorded Last Taken Type Ibuprofen [Motrin 400 MG tab] 400 mg PO Q8H PRN #30 tablet 04/25/15 Unknown Rx predniSONE [Deltasone] 50 mg PO QDAY #5 tab 06/03/16 Unknown Rx ALPRAZolam [Xanax TAB] 0.5 mg PO BID PRN #10 tab 02/06/17 Unknown Rx Mag Hydrox/Aluminum Hyd/Simeth 20 ml PO QID PRN #1 oral.susp 09/03/17 Unknown Rx [Maalox Advanced Suspension] Propranolol HCl 20 mg PO BID #60 tablet 09/03/17 Unknown Rx hydrOXYzine PAMOATE [Vistaril] 50 mg PO Q6HR PRN #30 capsule 09/03/17 Unknown Rx Famotidine [Pepcid] 20 mg PO BID #60 tablet 09/18/17 Unknown Rx Azithromycin [Zithromax Z-CHARLENE] 250 mg PO DAILY #6 tablet 01/01/18 Unknown Rx Benzonatate [Tessalon Perle] 100 mg PO Q8H PRN #20 capsule 01/01/18 Unknown Rx Prednisone [predniSONE 10 mg 10 mg PO .TAPER #1 tab.ds.pk 01/01/18 Unknown Rx (6-Day Pack, 21 Tabs)] Azithromycin [Zithromax Z-CHARLENE] 250 mg PO DAILY #6 tablet 02/05/18 Unknown Rx Fluticasone [Flonase] 1 spray NS QDAY #1 bottle 02/05/18 Unknown Rx predniSONE [Deltasone] 20 mg PO QDAY #5 tab 02/05/18 Unknown Rx traMADoL [Ultram] 50 mg PO Q6HR PRN #10 tablet 02/05/18 Unknown Rx Benzonatate [Tessalon Perle] 100 mg PO Q8H PRN #20 capsule 02/11/18 Unknown Rx ProAir 2 puff IH Q4-6H PRN #1 02/11/18 Unknown Rx Ibuprofen [Motrin] 600 mg PO Q8H PRN #30 tablet 07/25/19 Unknown Rx Cyclobenzaprine [Flexeril] 10 mg PO QHS PRN #21 tablet 08/24/19 Unknown Rx Naproxen 500 mg PO Q12H PRN #24 tablet 08/24/19 Unknown Rx diphenhydrAMINE HCL [Sominex] 25 mg PO Q8H PRN #24 tablet 11/24/19 Unknown Rx Ondansetron [Zofran Odt] 4 mg PO Q6HR PRN #15 tab.rapdis 02/28/20 Unknown Rx Ibuprofen [Motrin] 600 mg PO Q8H PRN #20 tablet 04/22/20 Unknown Rx Sulfamethoxazole/Trimethoprim 1 each PO BID #14 tablet 04/22/20 Unknown Rx [Bactrim DS TAB] Allergies Allergy/AdvReac Type Severity Reaction Status Date / Time corn Allergy Rash Verified 07/25/19 17:44 peanut Allergy Swelling Verified 07/25/19 17:44 Penicillins Allergy Swelling Verified 07/25/19 17:44 shellfish derived Allergy Swelling Verified 07/25/19 17:44 soybean Allergy Rash Verified 07/25/19 17:44 wheat Allergy Rash Verified 07/25/19 17:44 seafood Allergy Swelling Uncoded 07/25/19 17:44 ED Review of Systems ROS: Stated complaint: CRAMPS PERIOD Other details as noted in HPI Constitutional: denies: chills, fever Eyes: denies: eye pain, eye discharge, vision change ENT: denies: ear pain, throat pain Respiratory: denies: cough, shortness of breath, wheezing Cardiovascular: denies: chest pain, palpitations Endocrine: no symptoms reported Gastrointestinal: denies: abdominal pain, nausea, diarrhea Genitourinary: abnormal menses. denies: urgency, dysuria, frequency, hematuria, discharge, dyspareunia Musculoskeletal: denies: back pain, joint swelling, arthralgia Skin: denies: rash, lesions Neurological: denies: headache, weakness, paresthesias Psychiatric: denies: anxiety, depression Hematological/Lymphatic: denies: easy bleeding, easy bruising ED Past Medical Hx - Past Medical History Previous Medical History?: Yes Hx GERD: Yes Hx Arthritis: Yes Hx Asthma: Yes Additional medical history: chronic pain,palpitations. SCIATICA. "SPOT ON BRAI N", ANXIETY - Surgical History Past Surgical History?: Yes Additional Surgical History: TONSILLECTOMY. TUBES IN EARS - Social History Smoking Status: Never Smoker Substance Use Type: None - Medications Home Medications: Home Medications Medication Instructions Recorded Confirmed Last Taken Type Albuterol Sulfate Nebu 1 neb IH Q4-6H PRN 05/16/14 06/03/16 05/13/14 08:00 History Flexeril 5mg 5 mg PO Q8H PRN 05/16/14 06/03/16 05/14/14 21:00 History Gabapentin 600 mg PO BID 05/16/14 06/03/16 05/15/14 08:00 History Ibuprofen [Motrin 400 MG tab] 400 mg PO Q8H PRN #30 tablet 04/25/15 06/03/16 Unknown Rx predniSONE [Deltasone] 50 mg PO QDAY #5 tab 06/03/16 Unknown Rx ALPRAZolam [Xanax TAB] 0.5 mg PO BID PRN #10 tab 12/24/17 Unknown Rx Mag Hydrox/Aluminum Hyd/Simeth 20 ml PO QID PRN #1 oral.susp 09/03/17 Unknown Rx [Maalox Advanced Suspension] Propranolol HCl 20 mg PO BID #60 tablet 09/03/17 Unknown Rx hydrOXYzine PAMOATE [Vistaril] 50 mg PO Q6HR PRN #30 capsule 09/03/17 Unknown Rx Famotidine [Pepcid] 20 mg PO BID #60 tablet 09/18/17 Unknown Rx Azithromycin [Zithromax Z-CHARLENE] 250 mg PO DAILY #6 tablet 01/01/18 Unknown Rx Benzonatate [Tessalon Perle] 100 mg PO Q8H PRN #20 capsule 01/01/18 Unknown Rx Prednisone [predniSONE 10 mg 10 mg PO .TAPER #1 tab.ds.pk 01/01/18 Unknown Rx (6-Day Pack, 21 Tabs)] Azithromycin [Zithromax Z-CHARLENE] 250 mg PO DAILY #6 tablet 02/05/18 Unknown Rx Fluticasone [Flonase] 1 spray NS QDAY #1 bottle 02/05/18 Unknown Rx predniSONE [Deltasone] 20 mg PO QDAY #5 tab 02/05/18 Unknown Rx traMADoL [Ultram] 50 mg PO Q6HR PRN #10 tablet 02/05/18 Unknown Rx Benzonatate [Tessalon Perle] 100 mg PO Q8H PRN #20 capsule 02/11/18 Unknown Rx ProAir 2 puff IH Q4-6H PRN #1 02/11/18 Unknown Rx Ibuprofen [Motrin] 600 mg PO Q8H PRN #30 tablet 07/25/19 Unknown Rx Cyclobenzaprine [Flexeril] 10 mg PO QHS PRN #21 tablet 08/24/19 Unknown Rx Naproxen 500 mg PO Q12H PRN #24 tablet 08/24/19 Unknown Rx diphenhydrAMINE HCL [Sominex] 25 mg PO Q8H PRN #24 tablet 11/24/19 Unknown Rx Ondansetron [Zofran Odt] 4 mg PO Q6HR PRN #15 tab.rapdis 02/28/20 Unknown Rx Ibuprofen [Motrin] 600 mg PO Q8H PRN #20 tablet 04/22/20 Unknown Rx Sulfamethoxazole/Trimethoprim 1 each PO BID #14 tablet 04/22/20 Unknown Rx [Bactrim DS TAB] ED Physical Exam - General Limitations: No Limitations General appearance: alert, in no apparent distress - Head Head exam: Present: atraumatic, normocephalic - Eye Eye exam: Present: normal appearance - ENT ENT exam: Present: mucous membranes moist - Neck Neck exam: Present: normal inspection - Respiratory Respiratory exam: Present: normal lung sounds bilaterally. Absent: respiratory distress, wheezes, rales, rhonchi, stridor, chest wall tenderness, accessory muscle use, decreased breath sounds, prolonged expiratory - Cardiovascular Cardiovascular Exam: Present: regular rate, normal rhythm, normal heart sounds. Absent: bradycardia, tachycardia, irregular rhythm, systolic murmur, diastolic murmur, rubs, gallop - GI/Abdominal GI/Abdominal exam: Present: soft, normal bowel sounds. Absent: distended, tenderness, guarding, rebound, rigid, diminished bowel sounds - Extremities Exam Extremities exam: Present: full ROM - Back Exam Back exam: Present: full ROM - Neurological Exam Neurological exam: Present: alert, oriented X3, normal gait - Psychiatric Psychiatric exam: Present: normal affect, normal mood - Skin Skin exam: Present: warm, dry, intact, normal color. Absent: rash ED Course Vital Signs 04/22/20 15:02 Temperature 98.8 F Pulse Rate 83 Respiratory 18 Rate Blood Pressure 119/79 O2 Sat by Pulse 100 Oximetry - Reevaluation(s) Reevaluation #1: 04/22/20 17:44 Patient is speaking in full sentences with no signs of distress noted. ED Medical Decision Making - Lab Data Result diagrams: 04/22/20 15:42 04/22/20 15:42 Lab Results 04/22/20 04/22/20 04/22/20 Range/Units 15:42 15:42 15:42 WBC 10.7 (4.5-11.0) K/mm3 RBC 4.26 (3.65-5.03) M/mm3 Hgb 13.4 (10.1-14.3) gm/dl Hct 39.2 (30.3-42.9) % MCV 92 (79-97) fl MCH 31 (28-32) pg MCHC 34 (30-34) % RDW 13.3 (13.2-15.2) % Plt Count 286 (140-440) K/mm3 Lymph % (Auto) 15.7 (13.4-35.0) % [place] % (Auto) 8.5 H (0.0-7.3) % Eos % (Auto) 0.8 (0.0-4.3) % Baso % (Auto) 0.2 (0.0-1.8) % Lymph # (Auto) 1.7 (1.2-5.4) K/mm3 [place] # (Auto) 0.9 H (0.0-0.8) K/mm3 Eos # (Auto) 0.1 (0.0-0.4) K/mm3 Baso # (Auto) 0.0 (0.0-0.1) K/mm3 Seg Neutrophils % 74.8 H (40.0-70.0) % Seg Neutrophils # 8.0 H (1.8-7.7) K/mm3 Sodium 136 L (137-145) mmol/L Potassium 3.9 (3.6-5.0) mmol/L Chloride 103.1 (98-107) mmol/L Carbon Dioxide 25 (22-30) mmol/L Anion Gap 12 mmol/L BUN 14 (7-17) mg/dL Creatinine 0.7 (0.6-1.2) mg/dL Estimated GFR > 60 ml/min BUN/Creatinine Ratio 20 % Glucose 87 (65-100) mg/dL Calcium 9.1 (8.4-10.2) mg/dL HCG, Qual Negative (Negative) Urine Color (Yellow) Urine Turbidity (Clear) Urine pH (5.0-7.0) Ur Specific [place] (1.003-1.030) Urine Protein (Negative) mg/dL Urine Glucose (UA) (Negative) mg/dL Urine Ketones (Negative) mg/dL Urine Blood (Negative) Urine Nitrite (Negative) Urine Bilirubin (Negative) Urine Urobilinogen (<2.0) mg/dL Ur Leukocyte Esterase (Negative) Urine WBC (Auto) (0.0-6.0) /HPF Urine RBC (Auto) (0.0-6.0) /HPF U Epithel Cells (Auto) (0-13.0) /HPF Urine Mucus /HPF 04/22/20 Range/Units 16:02 WBC (4.5-11.0) K/mm3 RBC (3.65-5.03) M/mm3 Hgb (10.1-14.3) gm/dl Hct (30.3-42.9) % MCV (79-97) fl MCH (28-32) pg MCHC (30-34) % RDW (13.2-15.2) % Plt Count (140-440) K/mm3 Lymph % (Auto) (13.4-35.0) % [place] % (Auto) (0.0-7.3) % Eos % (Auto) (0.0-4.3) % Baso % (Auto) (0.0-1.8) % Lymph # (Auto) (1.2-5.4) K/mm3 [place] # (Auto) (0.0-0.8) K/mm3 Eos # (Auto) (0.0-0.4) K/mm3 Baso # (Auto) (0.0-0.1) K/mm3 Seg Neutrophils % (40.0-70.0) % Seg Neutrophils # (1.8-7.7) K/mm3 Sodium (137-145) mmol/L Potassium (3.6-5.0) mmol/L Chloride (98-107) mmol/L Carbon Dioxide (22-30) mmol/L Anion Gap mmol/L BUN (7-17) mg/dL Creatinine (0.6-1.2) mg/dL Estimated GFR ml/min BUN/Creatinine Ratio % Glucose (65-100) mg/dL Calcium (8.4-10.2) mg/dL HCG, Qual (Negative) Urine Color Red (Yellow) Urine Turbidity Cloudy (Clear) Urine pH 7.0 (5.0-7.0) Ur Specific [place] 1.028 (1.003-1.030) Urine Protein 100 mg/dl (Negative) mg/dL Urine Glucose (UA) Neg (Negative) mg/dL Urine Ketones Neg (Negative) mg/dL Urine Blood Lg (Negative) Urine Nitrite Neg (Negative) Urine Bilirubin Neg (Negative) Urine Urobilinogen 4.0 (<2.0) mg/dL Ur Leukocyte Esterase Sm (Negative) Urine WBC (Auto) 46.0 H (0.0-6.0) /HPF Urine RBC (Auto) > 182.0 (0.0-6.0) /HPF U Epithel Cells (Auto) 8.0 (0-13.0) /HPF Urine Mucus 2+ /HPF - Medical Decision Making 19-year-old female that presents with dysmenorrhea. Patient is stable and was examined by me. Patient is notified of the lab results and urine results. Patient be discharged with Bactrim. Patient was instructed to follow-up with a [facility] doctor in 3-5 days or if symptoms worsen and continue return to emergency room as soon as possible. At time of discharge, the patient does not seem toxic or ill in appearance. No acute signs of distress noted. Patient agrees to discharge treatment plan of care. No further questions noted by the patient. Critical care attestation.: If time is entered above; I have spent that time in minutes in the direct care of this critically ill patient, excluding procedure time. ED Disposition Clinical Impression: Dysmenorrhea UTI (urinary tract infection) Qualifiers: Urinary tract infection type: acute cystitis Hematuria presence: with hematuria Qualified Code(s): N30.01 - Acute cystitis with hematuria Disposition: TO HOME OR SELFCARE Is pt being admited?: No Does the pt Need Aspirin: No Condition: Stable Instructions: Dysmenorrhea, Abdominal Pain (ED) Additional Instructions: Follow-up with a [facility]PER[facility] doctor in 3-5 days or if symptoms worsen and continue r eturn to emergency room as soon as possible. Prescriptions: Sulfamethoxazole/Trimethoprim [Bactrim DS TAB] 1 each PO BID #14 tablet Ibuprofen [Motrin] 600 mg PO Q8H PRN #20 tablet PRN Reason: Pain Referrals: [facility] [Referring] - 3-5 Days ROHIT PATEL MD [Staff Physician] - 3-5 Days [facility] [Provider Group] - 3-5 Days [facility] [Provider Group] - 3-5 Days Forms: Work/School Release Form(ED) Time of Disposition: 17:49
== END 2020-04-22 17:49 | disposition home or self-care (01) ==
LOC: ED 14:59
DX: N94.6 Dysmenorrhea, unspecified (principal); N39.0 Urinary tract infection, site not specified; K21.9 Gastro-esophageal reflux disease without esophagitis; J45.909 Unspecified asthma, uncomplicated; F41.9 Anxiety disorder, unspecified; Z79.899 Other long term (current) drug therapy; Z91.013 Allergy to seafood; Z91.018 Allergy to other foods; Z88.0 Allergy status to penicillin; Z98.890 Other specified postprocedural states
CPT/HCPCS: 36415; 80048; 81001; 84703; 85025; 87086; 99283

== ENCOUNTER 2020-05-20 11:42 | Emergency (ER) | payer BC, MEDICAID ==
[2020-05-20 12:22] VITALS: BP 121/81
--- NOTE | 2020-05-20 12:40 | Emergency Department Report ---
Chief Complaint: Dental/Oral Stated Complaint: MOUTH SORE Time Seen by Provider: 05/20/20 12:28 - HPI History of Present Illness: 20-year-old -[place] female patient presents with complaints of mouth sores x2 days. She denies any injury, fever/chills/sweats, sore throat, or swelling to the face. Patient states the sores are mildly painful and worsen with eating salty foods. - Exam Vital Signs: Vital Signs 05/20/20 12:21 Temperature 98.5 F Pulse Rate 79 Respiratory 20 Rate Blood Pressure 121/81 O2 Sat by Pulse 99 Oximetry MSE screening note: Focused history and physical exam performed. Due to findings the following was ordered: ED Medical Decision Making - Medical Decision Making 20-year-old -[place] female patient presents with complaints of mouth sores x2 days. She denies any injury, fever/chills/sweats, sore throat, or swelling to the face. Patient states the sores are mildly painful and worsen with eating salty foods. Canker sore noted on exam. Recommend [id number] Orajel and warm salt water mouth rinses and ibuprofen as needed. Patient to follow-up with her primary care doctor. Strict return precautions discussed in detail with patient who verbalized understanding. ED Disposition for MSE Clinical Impression: Canker sore Disposition: Z-07 MED SCREENING EXAM-LEFT Is pt being admited?: No Condition: Stable Instructions: Canker Sores Referrals: [facility] [Provider Group] - 3-5 Days ED Physical Exam - General Limitations: No Limitations General appearance: alert, in no apparent distress - Head Head exam: Present: atraumatic, normocephalic - Eye Eye exam: Present: normal appearance. Absent: scleral icterus - Expanded ENT Exam Expanded Mouth exam: Present: normal external inspection, other (Small superficial canker sore noted to left inner cheek without drainage noted). Absent: drooling, trismus, muffled voice Teeth exam: Present: normal inspection Throat exam: Positive: normal inspection. Negative: tonsillar erythema, tonsillomegaly, tonsillar exudate - Neck Neck exam: Present: normal inspection, full ROM. Absent: lymphadenopathy - Respiratory Respiratory exam: Absent: respiratory distress - Cardiovascular Cardiovascular Exam: Present: regular rate - Neurological Exam Neurological exam: Present: alert, oriented X3, normal gait - Psychiatric Psychiatric exam: Present: normal affect, normal mood - Skin Skin exam: Present: warm, dry, intact, normal color. Absent: rash ED Review of Systems ROS: Stated complaint: MOUTH SORE Other details as noted in HPI Constitutional: denies: chills, diaphoresis, fever, malaise, weakness ENT: denies: throat pain Respiratory: denies: cough, shortness of breath Skin: denies: rash, change in color Neurological: denies: headache, numbness Hematological/Lymphatic: denies: swollen glands
== END 2020-05-20 12:59 | disposition left against medical advice (07) ==
LOC: ED 11:42
DX: K12.0 Recurrent oral aphthae (principal); Z53.21 Procedure and treatment not carried out due to patient leaving prior to being seen by health care provider